=== PATIENT | female | born 1960 | race Caucasian/White ===

== ENCOUNTER 2024-02-04 01:23 | Outpatient (CLI) | payer MEDICARE, SELFPAY ==
--- OUTSIDE RECORDS SUMMARY | 2024-02-04 01:30 | XMS_ITS | Encounter Summary ---
Author Organization [facility] [place] [address] Care Team Providers Care Door Liner Helper Name Role Phone Unavailable Primary Care Provider Unavailabl e Encounter Details Date Type Department Care Team (Late st Contact Info) Description 12/22/2023 Interpretation Only [address] [phone] Frandy Perry MD [address] [place] [address] Social History Tobacco Use Types Packs/Day Years Used Date Smoking Tobacco: Never Assessed Sex and Gender Information Value Date Recorded Sex Assigned at Not on file Gender Identity Not on file Sexual Orientation Not on file documented as of this encounter Plan of Treatment Not on file documented as of this encounter Procedures Procedure Name Priority Date/Time Associated Diagnosis Comments CT CHEST W CONTRAST Routine 12/22/2023 3 :28 PM EDT documented in this encounter Results * CT Chest w Contrast (12/22/2023 3:28 PM EDT) PT CLASS O RAD ADMITDTTM [id number] RAD PT RAD INFO [id number]^BUFF^M ICHAEL^S RAD EXAM DESC CTCHW^CT Chest w/ Contrast^RIS RAD WORKSTATION ID RADDRIMAGE RAD Anatomical Region Laterality Modality Chest Computed Tomogra phy 12/22/2023 3:28 PM EDT Impressions 12/22/2023 4:01 PM EDT 1. ??Scarring in the posterior medial aspect of the upper portion of the right lower lobe, possibly postoperative. No pulmonary masses detected. 2. ??Extensive pulmonary emphysema. 3. ??Multiple liver cysts and a 6 mm indeterminate hypodensity in the right lobe. Consider further characterization with liver mass protocol MRI. 4. ??No unequivocal metastatic disease in the chest, abdomen and pelvis. 5. ??Additional findings, as above. Thank you for letting us participate in the care of this patient. ??If you are a health care provider and have any questions regarding this report, please contact the number below. ??For patients who have questions please contact the health care administrative tech that requested your imaging first. ? Narrative 12/22/2023 4:01 PM EDT EXAMINATION: CT Chest w/ Contrast, CT Abdomen and Pelvis w/ Contrast CLINICAL HISTORY: Malignant neoplasm of lower lobe, right bronchus or lung TECHNIQUE: Helical CT of the chest, abdomen, and pelvis following the intravenous administration of mL of Omnipaque 350. ??Oral contrast administered. COMPARISON: None FINDINGS: Chest: Pulmonary parenchyma: Apical predominant centrilobular emphysema. Scarring in the medial aspect of the right lower lobe, possibly postoperative. No discrete pulmonary lesion. No acute airspace disease. Airways: Mild diffuse bronchiectasis. Mediastinum and adwoa: Atheromatous thoracic aorta is normal in caliber. Coronary calcifications are seen.. Chest wall: Unremarkable. Abdomen/pelvis: Liver: Multiple variably sized cysts. A 6 mm hypodensity in the medial aspect of the right lobe, indeterminate (series 3 image 86). Bile ducts: Nondilated. Gallbladder: No calcified gallstones. Normal caliber wall. Pancreas: Normal attenuation without ductal dilatation. Spleen: Normal. Adrenals: Normal. Kidneys: Normal. Urinary Bladder: Normal. Vasculature: Densely atheromatous abdominal aorta is normal in caliber. Lymph Nodes: No enlarged lymph nodes. Bowel: Nondilated, no wall thickening. ?? Formed stool in the colon. Normal appendix. Peritoneum and retroperitoneum: No free fluid. No pneumoperitoneum. No loculated fluid collection or mesenteric inflammation. Abdominal wall: No hernia or mass. Reproductive organs: Retroverted, anteflexed uterus. No adnexal lesions. Osseous structures: Subjectively decreased bone mineralization. Wedge-shaped deformity of L1 vertebral body, age indeterminate. Superior endplate defect of L3 vertebral body, age indeterminate. 6 No suspicious lesions. Procedure Note Hai Salvador MD - 12/22/2023 EXAMINATION: CT Chest w/ Contrast, CT Abdomen and Pelvis w/ Contrast CLINICAL HISTORY: Malignant neoplasm of lower lobe, right bronchus orlung TECHNIQUE: Helical CT of the chest, abdomen, and pelvis following the intravenous administration of mL of Omnipaque 350. Oral contrastadministered. COMPARISON: None FINDINGS: Chest: Pulmonary parenchyma: Apical predominant centrilobular emphysema. Scarringin the medial aspect of the right lower lobe, possibly postoperative. Nodiscrete pulmonary lesion. No acute airspace disease. Airways: Mild diffuse bronchiectasis. Mediastinum and adwoa: Atheromatous thoracic aorta is normal in caliber.Coronary calcifications are seen.. Chest wall: Unremarkable. Abdomen/pelvis: Liver: Multiple variably sized cysts. A 6 mm hypodensity in the medialaspect of the right lobe, indeterminate (series 3 image 86). Bile ducts: Nondilated. Gallbladder: No calcified gallstones. Normal caliber wall. Pancreas: Normal attenuation without ductal dilatation. Spleen: Normal. Adrenals: Normal. Kidneys: Normal. Urinary Bladder: Normal. Vasculature: Densely atheromatous abdominal aorta is normal in caliber. Lymph Nodes: No enlarged lymph nodes. Bowel: Nondilated, no wall thickening. Formed stool in the colon.Normal appendix. Peritoneum and retroperitoneum: No free fluid. No pneumoperitoneum. Noloculated fluid collection or mesenteric inflammation. Abdominal wall: No hernia or mass. Reproductive organs: Retroverted, anteflexed uterus. No adnexal lesions. Osseous structures: Subjectively decreased bone mineralization.Wedge-shaped deformity of L1 vertebral body, age indeterminate. Superior endplatedefect of L3 vertebral body, age indeterminate. 6 No suspicious lesions. IMPRESSION 1. Scarring in the posterior medial aspect of the upper portion of theright lower lobe, possibly postoperative. No pulmonary masses detected. 2. Extensive pulmonary emphysema. 3. Multiple liver cysts and a 6 mm indeterminate hypodensity in the rightlobe. Consider further characterization with liver mass protocol MRI. 4. No unequivocal metastatic disease in the chest, abdomen and pelvis. 5. Additional findings, as above. Thank you for letting us participate in the care of this patient. If youare a health care provider and have any questions regarding this report,please contact the number below. For patients who have questions please contactthe health care administrative tech that requested your imaging first. Frandy Perry MD IMG CT ORDERABLES documented in this encounter Visit Diagnoses Not on filedocumented in this encounter
--- OUTSIDE RECORDS SUMMARY | 2024-02-04 01:30 | XMS_ITS | Clinical Summary ---
Author Organization [facility] [address] Care Team Providers Care White Lead Filterer Name Role Phone Unavailable Primary Care Provider Unavailabl e Encounters Date Type Department Care Team Description 12/22/2023 Interpretation Only [address] [phone] Frandy Perry MD 12/22/2023 Interpretation Only [address] [phone] Frandy Perry MD from Last 3 Months Social History Tobacco Use Types Packs/Day Years Used Date Smoking Tobacco: Never Assessed Sex and Gender Information Value Date Recorded Sex Assigned at Not on file Gender Identity Not on file Sexual Orientation Not on file Plan of Treatment Health Maintenance Due Date Last Done Comments CT Colonography 1958 Colonoscopy 1958 Colorectal Cancer Screening 1958 FIT DNA 1958 FIT 1958 Sigmoidoscopy (10 year) with FIT yearly 1958 Sigmoidoscopy 1958 HIV screen 1976 Hepatitis C Screening 1976 Tdap adult 1977 Tetanus vaccine 1977 HPV test 1988 PAP Smear 1988 Breast Cancer Share Decision Needed 1998 Breast Cancer screening 1998 Zoster vaccine (1 of 2) 2008 Advance Directive 2013 Bone Density Scan 2023 Pneumoccocal Vaccine: 65+ (1 of 1 - PCV) 2023 Covid-19 Vaccine (1 - season) 2024 Influenza (Flu) vaccine (1 o f 1 - Influenza standard series) 01/23/2024 Procedures Procedure Name Priority Date/Time Associated Diagnosis Comments CT ABDOMEN AND PELVIS W CONTRAST Routine 12/22/2023 3:[address] CHEST W CONTRAST Routine 12/22/2023 3 :28 PM EDT from Last 3 Months Results * CT Abdomen & Pelvis w Contrast (12/22/2023 3:29 PM EDT) PT CLASS O RAD ADMITDTTM [id number] RAD PT RAD INFO [id number]^BUFF^M ICHAEL^S RAD EXAM DESC CTAPW^CT Abdomen and Pelvis w/ Contrast^RIS [facility] WORKSTATION ID RADDRIMAGE [facility] Anatomical Region Laterality Modality Abdomen, Pelvis Computed Tomogra phy 12/22/2023 3:29 PM EDT Impressions 12/22/2023 4:01 PM EDT [...] who have questions please contact the health nursing care attendant that requested your imaging first. ? Narrative [...] patients who have questions please contactthe health nursing care attendant that requested your imaging first. Frandy Perry MD IMG CT ORDERABLES * CT Chest w Contrast (12/22/2023 3:28 PM EDT) PT CLASS O RAD ADMITDTTM [id number] RAD PT RAD INFO [id number]^BUFF^M ICHAEL^S RAD EXAM DESC CTCHW^CT Chest w/ Contrast^RIS [facility] WORKSTATION ID RADDRIMAGE [facility] Anatomical Region Laterality Modality Chest Computed Tomogra [...] who have questions please contact the health nursing care attendant that requested your imaging first. ? Narrative [...] patients who have questions please contactthe health nursing care attendant that requested your imaging first. Frandy Perry MD IMG CT ORDERABLES from Last 3 Months
--- OUTSIDE RECORDS SUMMARY | 2024-02-04 01:30 | XMS_ITS | Encounter Summary ---
Author Organization [facility] Address [facility] [place] [address] Care Team Providers Care Football Coach Name Role Phone Unavailable Primary Care Provider Unavailabl e Encounter Details Date Type Department Care Team (Late st Contact Info) Description 12/22/2023 Interpretation Only [address] [phone] Frandy Peryr MD [address] [place] [address] Social History Tobacco Use Types Packs/Day Years [...] W CONTRAST Routine 12/22/2023 3:29 PM EDT documented in this encounter Results * CT Abdomen & Pelvis w Contrast (12/22/2023 3:29 PM EDT) PT CLASS O RAD ADMITDTTM [id number] RAD PT RAD INFO [id number]^BUFF^M ICHAEL^S RAD EXAM DESC CTAPW^CT Abdomen and Pelvis w/ Contrast^RIS [facility] WORKSTATION ID [id number] RAD Anatomical Region Laterality Modality Abdomen, Pelvis Computed [...] who have questions please contact the health assisted living care manager that requested your imaging first. ? Electronically signed by: Hai Salvador MD, [facility] ([phone]), at 12/22/2023 4:01 PM Narrative 12/22/2023 4:01 PM EDT EXAMINATION: CT [...] patients who have questions please contactthe health assisted living care manager that requested your imaging first. Frandy Perry MD IMG CT ORDERABLES documented in this encounter Visit Diagnoses Not on filedocumented in this encounter
[2024-02-04 14:32] LABS: FREE T4 1.38 ng/dL (0.76-1.46); TSH 0.58 uIU/Ml (0.36-3.74)
== END 2024-02-04 01:24 | disposition home or self-care (01) ==
LOC: LBO 01:23
PROVIDERS: PCP Nurse Practitioner; Referring Provider Nurse Practitioner; Visit Provider Nurse Practitioner
DX: E03.9 Hypothyroidism, unspecified (principal)
CPT/HCPCS: 36415; 84439; 84443

== ENCOUNTER 2024-06-05 02:21 | Outpatient (CLI) | payer MEDICARE, SELFPAY ==
--- NOTE | 2024-06-05 | DI.CT_ITS ---
Exam(s) CT CHEST/ABD/PEL W EXAM: CT CHEST/ABD/PEL W CLINICAL HISTORY: Metastatic NSCLC of RLL, C34.31, restaging. TECHNIQUE: Imaging Protocol: Axial computed tomography images with coronal and sagittal reformatted images were created and reviewed. Computer aided detection (CAD) was utilized. CONTRAST MATERIAL: Intravenous: Omnipaque 350 Contrast volume:75 mL Oral: yes / COMPARISON: CT CT Chest w/ Contrast from 12/22/2023 FINDINGS: CHEST: Tracheobronchial tree: Patent. Mild bronchiectasis. Pulmonary parenchyma: No consolidation or dominant measurable mass. Centrilobular emphysema greater at the upper lobes. Right lower lobe scarring. Her left upper lobe granuloma. Mild scarring left u pper lobe. Stable 4 millimeter peripheral nodule posterior left lower lobe. Pleura: No effusion or pneumothorax. Mediastinum: Within normal limits. Aorta: Thoracic portion non-dilated. Atherosclerotic changes. Pulmonary arteries: No visible emboli. Heart: Normal size. No pericardial effusion. Bones: Unremarkable for age. No lytic or blastic lesions.No compression fractures. Soft tissues: Unremarkable. ABDOMEN and PELVIS: Liver: Normal density. Stable multiple liver cysts. No suspicious mass. Gallbladder and biliary tract: No evidence of stones or wall thickening. No biliary dilatation. Pancreas: Normal density, no abnormal calcifications or inflammatory process. Spleen: Normal. Kidneys: Normal size, contour and axis. No radiodense stones. No obstructive uropathy. No suspicious masses seen. Adrenal glands: No masses seen. Aorta: Abdominal portion non-dilated. Severe atherosclerotic calcification. Lymph nodes: Within normal limits. Soft tissues: Unremarkable. Bladder: Unremarkable. Bowel: No obstruction or bowel wall thickening. Peritoneal cavity: No ascites. No focal collection. No mesenteric inflammatory response. No free ai r. Bones: Unremarkable screws in left proximal femur. Stable mild L1 compression fracture. Stable decl ivity at the superior endplate of L3. Reproductive organs: Within normal limits. IMPRESSION: Postsurgical scarring right lower lobe. No evidence of recurrence mass, adenopathy or suspicious pul monary nodules. No evidence of metastatic disease in the chest, abdomen or pelvis. RADIATION DOSE DELIVERED: 365.59mGy.cm Total DLP DATA REPOSITORY: All CT scans at this facility are submitted to the National Radiology Data Registry (NRDR) Dose Index Registry (DIR) with the [employer] (A[employer]). RADIATION OPTIMIZATION: All CT scans at this facility use at least one of these dose optimization te chniques: automated exposure control; mA and/or kV adjustment per patient size (includes targeted exa ms where dose is matched to clinical indication); or iterative reconstruction.
[2024-06-05] MEDS: Barium Sulfate 2% W/V-Creamy Vanilla Smoothie 450 ML BTL PO ×2 (10:55→11:22)
[2024-06-05 11:35] LABS: Estimated GFR 62.13 (mL/min/1.73m2)
[2024-06-05] MEDS: Normal Saline - Diluent 50 ML VIAL IJ (13:09)
[2024-06-05] MEDS: Omnipaque 350 MG/ML 100 ML BTL IJ (13:10)
[2024-06-05 16:52] LABS: ALT 42 U/L (14-59); AST 22 U/L (15-37); Albumin 3.9 g/dL (3.4-5.0); Alkaline Phosphatase 75 U/L (46-116); Anion Gap 7.8 mmol/L (3-11); BUN 20 mg/dL (7-18); Bilirubin, Total 0.37 mg/dL (0.2-1.0); CO2 28.2 mmol/L (21.0-32.0); Calcium 8.9 mg/dL (8.5-10.1); Chloride 106 mmol/L (98-107); Glucose 111 mg/dL (74-106); Potassium 4.4 mmol/L (3.5-5.1); Sodium 142 mmol/L (136-145)
== END 2024-06-05 02:41 ==
LOC: DI 02:21
PROVIDERS: PCP Nurse Practitioner; Visit Provider Internal Medicine Medical Oncology
DX: C34.31 Malignant neoplasm of lower lobe, right bronchus or lung (principal); Z98.890 Other specified postprocedural states
CPT/HCPCS: 74177; 80053; 71260; 82565; J3490

== ENCOUNTER 2024-12-05 03:09 | Outpatient (CLI) | payer MEDICARE, SELFPAY ==
--- NOTE | 2024-12-05 | DI.CT_ITS ---
Exam(s) CT CHEST W EXAM: CT CHEST W CLINICAL HISTORY: Metastatic NSCLC, RLL, C34.31, C78.01, C78.02, primary RLL lung CA. TECHNIQUE: Multi planar reconstructions were performed. CONTRAST MATERIAL: Omnipaque 350; 75 cc COMPARISON: CT CT Chest w/ Contrast from 12/22/2023 (outside hospital) CT CT CHEST/ABD/PEL W from 06/05/2024 FINDINGS: CHEST: LUNGS: There are a few bilateral small calcified benign granulomas again noted in the lung irwin. A partially calcified slightly larger nodule in left upper lobe is also unchanged. A pleural based noncalcified nodule posteriorly in the left lower lobe superior segment is unchanged. A more concerning slightly spiculated nodular infiltrate in the left upper lobe anterior segment is again noted and appears unchanged from prior CT scans of 12/22/2023 and 06/05/2024. There is scarring and bronchiectasis in the medial aspect of the right lower lobe again noted. There are no new significant focal pulmonary findings and there are no pleural effusions. There are no focal findings in the trachea and mainstem bronchi. MEDIASTINUM: There is no hilar nor mediastinal adenopathy. No supraclavicular adenopathy. No axillary adenopathy. CARDIAC: Heart size is normal. There is no pericardial effusion.Caliber of the thoracic aorta is within normal limits. No evidence of dissection. VISUALIZED UPPER ABDOMEN:There are no significant adrenal masses. Multiple cysts are again noted in both lobes of the liver which appears stable OSSEOUS: No significant osseous lesions.No fractures. IMPRESSION: 1. Continued stable appearance of the lung irwin with findings as above but unchanged from prior studies listed above. No new significant lung nodules, new infiltrates, nor pleural effusions and there is no new intrathoracic adenopathy. 2. Stable appearing liver findings. RADIATION DOSE DELIVERED: 88.17mGy.cm Total DLP DATA REPOSITORY: All CT scans at this facility are submitted to the National Radiology Data Registry (NRDR) Dose Index Registry (DIR) with the [employer] (ACR). RADIATION OPTIMIZATION: All CT scans at this facility use at least one of these dose optimization techniques: automated exposure control; mA and/or kV adjustment per patient size (includes targeted exams where dose is matched to clinical indication); or iterative reconstruction.
[2024-12-05 14:03] LABS: ALT 41 U/L (14-59); AST 20 U/L (15-37); Albumin 4.0 g/dL (3.4-5.0); Alkaline Phosphatase 66 U/L (46-116); Anion Gap 9.6 mmol/L (3-11); BUN 15 mg/dL (7-18); Bilirubin, Total 0.4 mg/dL (0.2-1.0); CO2 25.4 mmol/L (21.0-32.0); Calcium 9.0 mg/dL (8.5-10.1); Chloride 103 mmol/L (98-107); Estimated GFR 70.51 (mL/min/1.73m2); Glucose 111 mg/dL (74-106); Potassium 4.0 mmol/L (3.5-5.1); Sodium 138 mmol/L (136-145); Total Protein 7.3 g/dL (6.4-8.2)
[2024-12-05] MEDS: Normal Saline - Diluent 50 ML VIAL IJ (14:17)
[2024-12-05] MEDS: Omnipaque 350 MG/ML 100 ML BTL IJ (14:17)
== END 2024-12-05 03:29 ==
LOC: DI 03:09
PROVIDERS: PCP Nurse Practitioner; Visit Provider Internal Medicine Medical Oncology
DX: C34.31 Malignant neoplasm of lower lobe, right bronchus or lung (principal); C78.01 Secondary malignant neoplasm of right lung; C78.02 Secondary malignant neoplasm of left lung
CPT/HCPCS: 80053; 71260; J3490

== ENCOUNTER 2024-12-11 13:22 | Outpatient (CLI) | payer MEDICARE, SELFPAY ==
[2024-12-11 12:37] LABS: Abs Immature Grans 0.03 10^3/uL (0.0-0.06); HCT 41.4 % (36.0-46.0); HGB 13.9 g/dL (11.2-15.7); Immature Grans % 0.3 %; MCH 31.2 pg (27.0-33.0); MCHC 33.6 % (32.0-36.0); MCV 93 fL (80-95); MPV 10.2 fL (8.0-11.0); Platelet Count 202 10^3/uL (130-400); RBC 4.45 10^6/uL (3.93-5.22); RDW 12.4 % (11.7-14.6); RDW-SD 42.5 fL; WBC 8.75 10^3/uL (4.4-10.8)
[2024-12-11 13:15] LABS: TSH 1.96 uIU/mL (0.36-3.74)
== END 2024-12-11 13:23 | disposition home or self-care (01) ==
LOC: LBO 13:23
PROVIDERS: PCP Nurse Practitioner; Visit Provider Nurse Practitioner Family
DX: Z79.899 Other long term (current) drug therapy (principal); C34.31 Malignant neoplasm of lower lobe, right bronchus or lung
CPT/HCPCS: 36415; 84439; 84443; 85025

== ENCOUNTER → 2025-05-14 00:56 | Outpatient (CLI) | payer MEDICARE, SELFPAY ==
--- NOTE | 2025-05-14 | DI.CT_ITS ---
Exam(s) CT CHEST W EXAM: CT CHEST W CLINICAL HISTORY: PRIMARY RLL LUNG CA,C34.31,NEOPLASM METASTATIC TO BOTH LUNGS,C78.01,C78.02. TECHNIQUE: Imaging protocol: Axial computed tomography images were obtained and coronal and sagittal reformatted images were created and reviewed. Lung Computer Aided Detection (CAD) was utilized. COMPARISON: CT CT CHEST W from 12/05/2024 FINDINGS: Tracheobronchial tree: Patent where visualized. There is stable mild bronchiectasis in the right lower lobe. Pulmonary parenchyma: There is a stable 4 mm nodule in the superior segment of the left lower lobe (series 8, image 65). Emphysematous changes are present in the lungs. The spiculated nodule in the anterior aspect of the left upper lobe is unchanged. There is a calcified granuloma again seen in the right lower lobe. There is also scarring which is stable in the right lower lobe. There are stable smaller scattered pulmonary nodules. There are no new pulmonary nodules. There are no new pulmonary infiltrates. Mediastinum and Esha: No dominant adenopathy or fluid collection. The esophagus is unremarkable. Thyroid gland: Unremarkable. Pleura: No effusion or pneumothorax. Heart: The heart is not dilated. Coronary artery calcification is present. No pericardial effusion. Aorta: Thoracic aorta non-dilated. There is no evidence of dissection. Atherosclerotic calcification is present. Upper abdomen: Stable hepatic cysts. There are no new hepatic mass is seen. Lymph nodes: Within normal limits. Soft tissues: Unremarkable. Bones:Within normal limits for the patient's age. IMPRESSION: 1. There has been no change in appearance of the CT scan of the chest since 12/05/2024. 2. No acute pulmonary process. RADIATION DOSE DELIVERED: 118.61mGy.cm Total DLP 118.61mGy.cm Total DLP DATA REPOSITORY: All CT scans at this facility are submitted to the National Radiology Data Registry (NRDR) Dose Index Registry (DIR) with the [employer] (ACR). RADIATION OPTIMIZATION: All CT scans at this facility use at least one of these dose optimization techniques: automated exposure control; mA and/or kV adjustment per patient size (includes targeted exams where dose is matched to clinical indication); or iterative reconstruction.
[2025-05-14 13:04] LABS: Abs Immature Grans 0.04 10^3/uL (0.0-0.06); HCT 36.8 % (36.0-46.0); HGB 12.5 g/dL (11.2-15.7); Immature Grans % 0.5 %; MCH 31.6 pg (27.0-33.0); MCHC 34.0 % (32.0-36.0); MCV 93 fL (80-95); MPV 10.0 fL (8.0-11.0); Platelet Count 206 10^3/uL (130-400); RBC 3.95 10^6/uL (3.93-5.22); RDW 12.3 % (11.7-14.6); RDW-SD 42.4 fL; WBC 8.34 10^3/uL (4.4-10.8)
[2025-05-14 13:31] LABS: TSH 1.96 uIU/mL (0.55-4.78)
[2025-05-14 13:32] LABS: ALT 31 U/L (10-49); AST 19 U/L (<34); Albumin 4.3 g/dL (3.2-5.0); Alkaline Phosphatase 81 U/L (46-116); Anion Gap 7 mmol/L (3-11); BUN 17 mg/dL (9-23); Bilirubin, Total 0.4 mg/dL (0.2-1.2); CO2 26.0 mmol/L (20.0-31.0); Calcium 9.2 mg/dL (8.3-10.6); Chloride 106 mmol/L (98-107); Glucose 89 mg/dL (74-106); Potassium 4.1 mmol/L (3.5-5.1); Sodium 139 mmol/L (136-145); Total Protein 7.2 g/dL (5.7-8.2)
[2025-05-14] MEDS: Normal Saline - Diluent 50 ML VIAL IJ (13:38)
[2025-05-14] MEDS: Omnipaque 350 MG/ML 100 ML BTL IJ (13:38)
[2025-05-14] MEDS: Normal Saline Flush 10 ML SYR IVP (13:38)
== END ==
LOC: DI 00:57
PROVIDERS: PCP Nurse Practitioner; Visit Provider Nurse Practitioner Family
DX: Z79.899 Other long term (current) drug therapy (principal); C34.31 Malignant neoplasm of lower lobe, right bronchus or lung
CPT/HCPCS: 80053; 71260; 84439; 84443; 85025; J3490